=== PATIENT | male | born 1965 | race Caucasian/White ===

== ENCOUNTER → 2017-09-30 | Outpatient (CLI) | payer OTHER ==
[~2017-09-30] MED LIST: MULT-506; OMEP10CA2
[2017-09-30 13:15] LABS: BASO % 0.2 %; BASO ABS # 0.02 K/uL (0-0.2); COMPLETE YES; EOS % 3.7 %; HEMATOCRIT 44.3 % (42-52); IG% 0.3 %; LYMPH % 23.2 %; LYMPH ABS # 2.32 K/uL (1.2-3.4); MEAN CORPUSCULAR HEMOGLOBIN 30.4 pg (25-34); MEAN CORPUSCULAR HGB CONC 33.4 g/dl (32-36); MEAN PLATELET VOLUME 9.9 fL (7.4-10.4); MONO % 6.7 %; NEUT % 65.9 %; PLATELET COUNT 210 K/uL (130-400); RED BLOOD COUNT 4.87 M/uL (4.7-6.1)
[2017-09-30 13:51] LABS: ALT/SGPT 29 U/L (12-78); AST/SGOT 15 U/L (15-37); BLOOD UREA NITROGEN 13 mg/dl (7-18); BUN/CREATININE RATIO 13.3 (10-20); CALCIUM 8.7 mg/dl (8.5-10.1); CARBON DIOXIDE 25 mmol/L (21-32); CHLORIDE 104 mmol/L (98-107); GLUCOSE 75 mg/dl (70-99); POTASSIUM 4.1 mmol/L (3.5-5.1); SODIUM 138 mmol/L (136-145)
[2017-09-30 14:02] LABS: ALB/GLOB RATIO 1.1 (0.9-2); ALKALINE PHOSPHATASE 69 U/L (45-117); CHOLESTEROL 228 mg/dl (0-200); CHOLESTEROL/HDL RATIO 5.8; HDL CHOLESTEROL 39 mg/dl; TRIGLYCERIDES 263 mg/dl (0-150); VERY LOW DENSITY LIPOPROT CALC 53 mg/dl
== END | disposition home or self-care (01) ==
LOC: C.LABSPEC 12:12
PROVIDERS: ATTEND Internal Medicine
DX: E78.5 Hyperlipidemia, unspecified (principal); R53.83 Other fatigue